=== PATIENT | male | born 1985 | race Caucasian/White ===

== ENCOUNTER 2023-12-11 11:41 | Emergency (ER) | payer OTHER ==
[~2023-12-11] VITALS: Ht 183.5 cm; Wt 97.7 kg
[2023-12-11] MEDS ORDERED: FEXO-353 PO (11:47)
[2023-12-11] MEDS ORDERED: TADA10TA PO (11:47)
[2023-12-11 11:56] VITALS: TEMP 97
[2023-12-11] MEDS ORDERED: DOCU-385 PO (14:49)
[2023-12-11] MEDS ORDERED: P-EP-24 PO (14:50)
[2023-12-11] MEDS ORDERED: FLUT16SP NASAL (14:51)
[2023-12-11 15:30] VITALS: BP 123/77; PULSE 71; RESP 18; O2SAT 99
[2023-12-17] MEDS ORDERED: CYCL-448 PO (13:43)
[2023-12-17] MEDS ORDERED: IBUP-1492 PO (13:43)
== END 2023-12-11 15:46 | disposition home or self-care (01) ==
LOC: EMS 11:41
DX: K59.00 Constipation, unspecified (principal); J30.9 Allergic rhinitis, unspecified; M54.50 Low back pain, unspecified; F12.90 Cannabis use, unspecified, uncomplicated; Z98.890 Other specified postprocedural states
CPT/HCPCS: 99282; Z7502

== ENCOUNTER → 2023-12-17 | Emergency (ER) | payer OTHER ==
[~2023-12-17] VITALS: Ht 182.9 cm; Wt 97.7 kg
[~2023-12-17] MED LIST: CYCL-448 PO; DOCU-385 PO; FEXO-353 PO; FLUT16SP NASAL; IBUP-1492 PO; P-EP-24 PO; TADA10TA PO
[2023-12-17 10:55] VITALS: BP 125/71; PULSE 61; RESP 20; TEMP 98.6; O2SAT 99
[2023-12-17 12:59] LABS: APPEARANCE,URINE CLEAR (CLEAR); BILIRUBIN,URINE NEGATIVE (NEGATIVE); COLOR,URINE LIGHT YELLOW (YELLOW); GLUCOSE, URINE (UA) NEGATIVE (NEGATIVE); KETONES,URINE NEGATIVE (NEGATIVE); LEUKOCYTE ESTERASE ,URINE NEGATIVE (NEGATIVE); NITRATE,URINE NEGATIVE (NEGATIVE); OCCULT BLOOD,URINE NEGATIVE (NEGATIVE); PROTEIN,URINE NEGATIVE (NEGATIVE); SPECIFIC GRAVITIY, URINE 1.021 (1.003-1.030); UROBILINOGEN,URINE <=1.0 mg/dL (<=1.0)
[2023-12-17] MEDS: KETOROLAC TROMETHAMINE 30 MG/ML VIAL IM ONE (13:30)
[2023-12-17] MEDS: LIDOCAINE 5% TRANSDERMAL PATCH TD ONE (13:31)
== END | disposition home or self-care (01) ==
LOC: EMS 10:49
DX: M54.50 Low back pain, unspecified (principal); K21.9 Gastro-esophageal reflux disease without esophagitis; F12.90 Cannabis use, unspecified, uncomplicated
CPT/HCPCS: 99283; 81003; 96372; J1885